=== PATIENT | male | born 1940 | race Caucasian/White ===

== ENCOUNTER 2016-07-24 08:24 | Day surgery (SDC) | payer OTHER ==
[2016-07-23 11:06] LABS: HEMATOCRIT 44.6 % (42.0-52.0); HEMOGLOBIN 14.8 g/dL (14.0-18.0); MCH 29.7 PG (27-31); MCHC 33.2 g/dL (33-37); MCV 89.6 FL (81-99); MPV 9.1 FL (7.4-10.4); RBC 4.98 XMIL (4.7-6.1)
[2016-07-23 11:20] LABS: AGAP 9; BUN 17 mg/dL (8-22); CALCIUM 9.3 mg/dL (8.8-10.2); CHLORIDE 99 mmol/L (98-107); COSMO 283; POTASSIUM 5.2 mmol/L (3.5-5.1); SODIUM 141 mmol/L (136-145); TCO2 33 mmol/L (25-35)
--- NOTE | 2016-07-23 11:41 | EKG Report ---
Test Performed on : 07/23/2016 10:52:46 AM Test Reason : PAT Blood Pressure : / mmHG Vent. Rate : 076 BPM Atrial Rate : 076 BPM P-R Int : 132 ms QRS Dur : 078 ms QT Int : 350 ms P-R-T Axes : 080 032 061 degrees QTc Int : 393 ms Normal sinus rhythm. Normal ECG When compared with ECG of 06-JUN-2014 13:43, No significant change was found Confirmed by Josr GARZA, Prasanna Dexter ([id number]) on 07/24/2016 9:28:56 AM
[2016-07-24] MEDS ORDERED: REGLAN ONE (09:07)
[2016-07-24] MEDS ORDERED: KEFZOL 1 GM/D5W 50 ML ONE (09:07)
[2016-07-24] MEDS ORDERED: PEPCID ONE (09:07)
[2016-07-24] MEDS ORDERED: LR 1,000 ML ONE (09:07)
[2016-07-24] MEDS ORDERED: XYLOCAINE 1%/EPI 1:100,000 ONE (12:45)
[2016-07-24] MEDS ORDERED: XYLOCAINE 1% ONE (13:02)
[2016-07-24] MEDS ORDERED: DIPRIVAN 1% ONE (13:52)
--- NOTE | 2016-07-24 14:40 | OPERATIVE NOTE ---
PROCEDURE DATE: 07/24/2016 PROCEDURE PERFORMED: Tracheostomy. SURGEON: Alexander Goodrich MD PEANUT SORTER: Diamond. PREOPERATIVE DIAGNOSES: 1. Vocal cord paralysis. 2. History of tonsillar cancer. 3. Chronic stridor. POSTOPERATIVE DIAGNOSES: 1. Vocal cord paralysis. 2. History of tonsillar cancer. 3. Chronic stridor. DESCRIPTION OF PROCEDURE: Satisfactory general endotracheal anesthesia was achieved. The neck was gently extended. The anterior neck was prepped and draped in a sterile fashion. We anesthetized again with 1% lidocaine without epinephrine in a vertical fashion. We incised the skin and carried our incision through the subcutaneous tissue, which was very sparse, all the way down to the trachea. We exposed the trachea. We identified what was felt to be the 3rd tracheal ring. We cauterized the tissue on each side of the 3rd tracheal ring and entered the trachea. We then cut the trachea and 3rd tracheal ring on the left side and the right side, thereby removing a small anterior segment. The underlying endotracheal tube was identified. It was slipped backward and, after it was out of our view, we introduced an 8 Shiley trach into the trachea without difficulty. We passed a flexible suction cannula into the trachea without difficulty and aspirated. We then introduced the inner cannula. The corrugated ventilator tubing was placed over the drape and attached to the inner cannula and the patient ventilated satisfactorily. We then held the flange in position. We used 3-0 nylon through the flange on each side. After that was secured, we then passed the trach collar around the neck and tied it securely. He tolerated it well, ventilated easily, and was sent to the recovery room in satisfactory condition.
[2016-07-24] MEDS ORDERED: SALINE LOCK IV FLUID XX ONE (14:42)
[2016-07-24] MEDS ORDERED: ZOFRAN IV PRN (14:42)
[2016-07-24] MEDS ORDERED: NORCO-7.5 PO PRN (14:42)
[2016-07-24] MEDS ORDERED: ROBINUL ONE (14:54)
[2016-07-24] MEDS ORDERED: LTA KIT ONE (15:24)
--- NOTE | 2016-07-24 17:49 | CONSULTATION ---
DATE OF CONSULTATION: 07/24/2016 REQUESTING PHYSICIAN: Alexander Goodrich MD REASON FOR CONSULTATION: Vocal cord paralysis requiring tracheostomy. HISTORY OF PRESENT ILLNESS: Mr. Dallas is a 75-year-old white male, with a remote history of tobacco use, who was diagnosed with a head and neck cancer in 2004 and required radiation and a neck surgery. The patient was evaluated by this practitioner in the Fall when he had infiltrates on a CT scan which improved with antibiotics. The patient was describing some dysphagia and a barium swallow revealed achalasia and he was referred for esophageal dilatation. When he was evaluated in my clinic 07/21/2016, he describes symptoms of progressive shortness of breath when he would relax his throat. Patient previously had been diagnosed with laryngospasm, which had just the opposite presentation by the patient's report. With that diagnosis, he noted when he relaxed his muscles his airway would improve. He was referred to Dr. Brendan Morrison and upon evaluation the patient had evidence of bilateral vocal cord paralysis. Dr. Morrison asked if BiPAP would be of benefit and in this case with actually be a relative contraindication. BiPAP might actually make the upper airway obstruction more severe. He discussed the case with Dr. Goodrich, who performed a tracheostomy earlier today. The patient now is on a tracheal collar on minimal oxygen. He is sleeping, but easily arousable and follows commands. PAST MEDICAL HISTORY/PROBLEM LIST: 1. History of head and neck cancer, as per above. 2. History of laryngospasm, as per above. 3. History of recurrent esophageal dysphagia, requiring dilatation. 4. Long history of bronchiectasis. 5. Nephrolithiasis. 6. History of skin cancer. 7. Gout. 8. Status post bilateral cataract removal. 9. Status post cholecystectomy. 10. Status post left inguinal hernia repair. 11. Throat surgery, as per above. SOCIAL HISTORY: No recent alcohol or tobacco use. He is retired. FAMILY HISTORY: Positive for heart disease and diabetes. PHYSICAL EXAMINATION: General: Reveals a well-developed, well-nourished, white male, resting comfortably following tracheostomy. Vital Signs: Stable. Appears afebrile. HEENT: Pupils are equal reactive. Oropharynx is clear. Neck: Supple. There is minimal dry blood around the tracheostomy site. Chest: Reveals good bilateral breath sounds. Cardiac Examination: Regular rate. Normal S1, normal S2. Abdomen: Soft without hepatosplenomegaly. Extremities: Without edema. IMPRESSION: Upper airway obstruction secondary to bilateral vocal cord dysfunction/paralysis following remote surgery and radiation therapy. His upper airway obstruction has been resolved by placement of a tracheostomy. He currently has a cuffed tracheostomy in place and this will be changed to a cuffless trach with a Passmuir Valve, after his tracheal stoma has fully developed.
[2016-07-24] MEDS: MAG-OX PO SCH (20:21)
[2016-07-24] MEDS: PERIDEX MT SCH (20:21)
[2016-07-24] MEDS ORDERED: TYLENOL PO PRN (21:27)
--- NOTE | 2016-07-25 06:00 | EKG Report ---
Test Performed on : 07/24/2016 11:55:27 PM Test Reason : tachycardia Blood Pressure : / mmHG Vent. Rate : 128 BPM Atrial Rate : 128 BPM P-R Int : 132 ms QRS Dur : 076 ms QT Int : 304 ms P-R-T Axes : 067 -20 066 degrees QTc Int : 443 ms Sinus tachycardia. Otherwise normal ECG When compared with ECG of 23-JUL-2016 10:52, Vent. rate has increased BY 52 BPM Confirmed by Josr GARZA, Prasanna Dexter ([id number]) on 07/25/2016 9:16:11 AM
[2016-07-25] MEDS ORDERED: THERA M PLUS PO SCH (09:00)
[2016-07-25] MEDS ORDERED: SYNTHROID PO SCH (09:00)
[2016-07-25] MEDS ORDERED: PRILOSEC PO SCH (09:00)
[2016-07-25] MEDS: PERIDEX MT SCH (10:13)
[2016-07-25] MEDS: MAG-OX PO SCH (10:13)
[2016-07-25 13:28] VITALS: BP 141/76
== END 2016-07-25 15:08 | disposition home or self-care (01) ==
LOC: OPS 08:24 → EDSTATUS 12:30 → UNDOADMOB 13:55 → SURHOLD 13:55 → 4N 14:41 → OPS 07-25 15:08 → UNDODISOB 07-25 15:08
PROVIDERS: ATTEND Surgery
DX: J38.02 Paralysis of vocal cords and larynx, bilateral (principal); R06.1 Stridor; Z85.89 Personal history of malignant neoplasm of other organs and systems
CPT/HCPCS: 80048; 82550; 84484; 85027; 93005; 93010; 94761; J0690; J7120